=== PATIENT | female | born 1940 | race Caucasian/White ===

== ENCOUNTER → 2020-09-17 | Outpatient (CLI) | payer BC ==
--- NOTE | 2020-09-17 13:31 | RAD ---
EXAM: Abdomen sonogram. HISTORY: Pain. TECHNIQUE: Sonographic imaging of the abdomen was performed. COMPARISON: CT dated 02/22/2020. FINDINGS: The exam is limited due to bowel gas and respiratory motion. The midline structures, includ ing the pancreas and inferior vena cava, are obscured. The liver is normal in size. No focal hepatic lesion is seen. The common bile duct is normal in caliber. The gallbladder is surgically absent. The right kidney measures 8.0 cm [id number]. There is no hydronephrosis. IMPRESSION: 1. No acute sonographic finding. 2. Cholecystectomy. 3. Mild decreased right renal size. This is due to measurement technique or mild atrophy. 4. Obscured midline structures due to bowel gas and respiratory motion. Electronically signed by: Audra Phipps MD (09/17/2020 1:28 PM) [id number]
== END ==
LOC: US 10:11
PROVIDERS: ATTEND Internal Medicine Gastroenterology
DX: R10.11 Right upper quadrant pain (principal); Z90.49 Acquired absence of other specified parts of digestive tract
CPT/HCPCS: 76705